=== PATIENT | male | born 1990 | race Hispanic/Latino ===

== ENCOUNTER 2017-01-01 16:13 | Emergency (ER) | payer OTHER ==
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
[2017-01-02 01:31] VITALS: BP 106/71
== END 2017-01-01 22:25 | disposition home or self-care (01) ==
LOC: ED 16:13
DX: M54.2 Cervicalgia (principal); V89.2XXA Person injured in unspecified motor-vehicle accident, traffic, initial encounter; Y93.89 Activity, other specified; Y99.9 Unspecified external cause status; Y92.410 Unspecified street and highway as the place of occurrence of the external cause
CPT/HCPCS: 72125

== ENCOUNTER 2017-09-20 20:54 | Emergency (ER) | payer OTHER ==
[2017-09-20] MEDS ORDERED: ZOFRAN ONE (21:16)
[2017-09-20] MEDS ORDERED: ZOFRAN IV ONE (21:18)
--- NOTE | 2017-09-20 21:25 | Emergency Department Report ---
ED Dizziness HPI - General Chief Complaint: Dizziness Stated Complaint: N&V,WEAKNESS Time Seen by Provider: 09/20/17 21:19 Source: patient, EMS Mode of arrival: Stretcher Limitations: No Limitations - History of Present Illness Initial Comments: Patient is a 27 years old male with no significant past medical history brought to the ER via EMS actively vomiting and complaining of dizziness and headache. Patient stated that he took 3 shots of espresso and he went for a workout. This is when he start having the nausea and vomiting and dizziness and headache. Patient denied any history of symptoms like this before. He denied any fever, neck pain or stiffness. No focal weakness, numbness or tingling sensation. MD Complaint: dizziness - Related Data Previous Rx's Medication Instructions Recorded Last Taken Type Ibuprofen [Motrin] 600 mg PO Q8H PRN #15 tablet 01/01/17 Unknown Rx methOCARBAMOL [Robaxin TAB] 500 mg PO Q6H PRN #15 tablet 01/01/17 Unknown Rx Allergies Allergy/AdvReac Type Severity Reaction Status Date / Time No Known Allergies Allergy Unverified 01/01/17 17:21 ED Review of Systems ROS: Stated complaint: N&V,WEAKNESS Other details as noted in HPI Comment: All other systems reviewed and negative Constitutional: denies: chills, fever Respiratory: denies: cough, shortness of breath, SOB with exertion Cardiovascular: denies: chest pain, palpitations, dyspnea on exertion Gastrointestinal: denies: abdominal pain, nausea, vomiting, diarrhea, constipation, hematemesis, melena Neurological: headache. denies: weakness, numbness, paresthesias, confusion, abnormal gait, vertigo ED Past Medical Hx - Past Medical History Previous Medical History?: No - Surgical History Past Surgical History?: No - Social History Smoking Status: Unknown if ever smoked - Medications Home Medications: Home Medications Medication Instructions Recorded Confirmed Last Taken Type Ibuprofen [Motrin] 600 mg PO Q8H PRN #15 tablet 01/01/17 Unknown Rx methOCARBAMOL [Robaxin TAB] 500 mg PO Q6H PRN #15 tablet 01/01/17 Unknown Rx ED Physical Exam - General Limitations: No Limitations General appearance: alert, other (patient is actively vomiting) - Head Head exam: Present: atraumatic, normocephalic, normal inspection - Eye Eye exam: Present: normal appearance, PERRL - ENT ENT exam: Present: normal exam, normal orophraynx, mucous membranes moist. Absent: mucous membranes dry, TM's normal bilaterally, normal external ear exam - Neck Neck exam: Present: normal inspection, full ROM. Absent: tenderness, meningismus - Respiratory Respiratory exam: Present: normal lung sounds bilaterally. Absent: respiratory distress, wheezes, rales, rhonchi, accessory muscle use, decreased breath sounds , prolonged expiratory - Cardiovascular Cardiovascular Exam: Present: regular rate, normal rhythm, normal heart sounds - GI/Abdominal GI/Abdominal exam: Present: soft, normal bowel sounds. Absent: distended, tenderness, guarding, rebound, rigid, organomegaly, mass, bruit, pulsatile mass , hernia - Extremities Exam Extremities exam: Present: normal inspection, full ROM, normal capillary refill - Back Exam Back exam: Present: normal inspection, full ROM. Absent: tenderness, CVA tenderness (R), CVA tenderness (L), muscle spasm, paraspinal tenderness, vertebral tenderness - Neurological Exam Neurological exam: Present: alert, oriented X3, CN II-XII intact, normal gait - Skin Skin exam: Present: warm, intact, normal color ED Course Vital Signs 09/20/17 09/20/17 09/20/17 20:57 21:01 21:15 Temperature 97.5 F L Pulse Rate 87 91 H 99 H Respiratory 16 18 20 Rate Blood Pressure 121/71 125/47 O2 Sat by Pulse 100 100 100 Oximetry 09/20/17 09/20/17 09/20/17 21:21 21:25 21:30 Temperature Pulse Rate 80 78 81 Respiratory 18 18 19 Rate Blood Pressure 125/47 125/47 128/65 O2 Sat by Pulse 100 100 100 Oximetry 09/20/17 09/20/17 09/20/17 21:35 21:41 21:42 Temperature 97.7 F Pulse Rate 79 Respiratory 17 16 Rate Blood Pressure 128/65 O2 Sat by Pulse 100 98 Oximetry 09/20/17 09/20/17 09/20/17 21:53 21:55 21:57 Temperature Pulse Rate 73 70 86 Respiratory 17 14 18 Rate Blood Pressure 128/65 128/65 128/65 O2 Sat by Pulse 100 100 100 Oximetry 09/20/17 09/20/17 09/20/17 21:59 22:00 22:15 Temperature Pulse Rate 91 H 85 80 Respiratory 18 17 14 Rate Blood Pressure 128/65 135/70 135/70 O2 Sat by Pulse 100 100 Oximetry 09/20/17 09/20/17 09/20/17 22:17 22:19 22:21 Temperature Pulse Rate 70 70 67 Respiratory 15 14 17 Rate Blood Pressure 122/71 122/71 122/71 O2 Sat by Pulse 100 100 100 Oximetry 09/20/17 09/20/17 09/20/17 22:23 22:25 22:27 Temperature Pulse Rate 73 80 73 Respiratory 19 19 18 Rate Blood Pressure 122/71 122/71 122/71 O2 Sat by Pulse 100 100 100 Oximetry 09/20/17 09/20/17 09/20/17 22:29 22:30 22:33 Temperature Pulse Rate 75 73 74 Respiratory 18 17 16 Rate Blood Pressure 122/71 121/61 121/61 O2 Sat by Pulse 100 100 100 Oximetry 09/20/17 09/20/17 09/20/17 22:35 22:37 22:39 Temperature Pulse Rate 83 80 77 Respiratory 18 19 19 Rate Blood Pressure 121/61 121/61 121/61 O2 Sat by Pulse 100 100 100 Oximetry 09/20/17 09/20/17 09/20/17 22:41 22:43 22:45 Temperature Pulse Rate 76 75 81 Respiratory 19 19 20 Rate Blood Pressure 121/61 121/61 121/61 O2 Sat by Pulse 100 100 100 Oximetry 09/20/17 09/20/17 09/20/17 22:47 22:49 22:51 Temperature Pulse Rate 80 79 81 Respiratory 13 17 19 Rate Blood Pressure 121/61 121/61 121/61 O2 Sat by Pulse 100 100 100 Oximetry 09/20/17 09/20/17 09/20/17 22:53 22:55 22:57 Temperature Pulse Rate 83 72 76 Respiratory 20 17 18 Rate Blood Pressure 121/61 121/61 121/61 O2 Sat by Pulse 100 100 100 Oximetry 09/20/17 09/20/17 09/20/17 22:59 23:00 23:03 Temperature Pulse Rate 76 78 78 Respiratory 18 17 19 Rate Blood Pressure 121/61 121/47 135/70 O2 Sat by Pulse 100 100 100 Oximetry 09/20/17 09/20/17 09/20/17 23:05 23:07 23:09 Temperature Pulse Rate 79 70 71 Respiratory 18 18 17 Rate Blood Pressure 135/70 135/70 135/70 O2 Sat by Pulse 100 100 100 Oximetry 09/20/17 09/20/17 09/20/17 23:11 23:13 23:15 Temperature Pulse Rate 78 80 81 Respiratory 18 15 18 Rate Blood Pressure 135/70 135/70 135/70 O2 Sat by Pulse 100 100 100 Oximetry 09/20/17 09/20/17 09/20/17 23:17 23:19 23:21 Temperature Pulse Rate 69 70 80 Respiratory 17 17 18 Rate Blood Pressure 135/70 135/70 135/70 O2 Sat by Pulse 100 100 100 Oximetry 09/20/17 09/20/17 09/20/17 23:23 23:25 23:27 Temperature Pulse Rate 79 79 78 Respiratory 17 18 17 Rate Blood Pressure 135/70 135/70 135/70 O2 Sat by Pulse 100 100 100 Oximetry 09/20/17 09/20/17 09/20/17 23:29 23:30 23:33 Temperature Pulse Rate 81 78 73 Respiratory 19 19 16 Rate Blood Pressure 135/70 112/50 112/50 O2 Sat by Pulse 100 100 100 Oximetry 09/20/17 09/20/17 09/20/17 23:35 23:37 23:39 Temperature Pulse Rate 77 79 79 Respiratory 18 16 16 Rate Blood Pressure 112/50 112/50 112/50 O2 Sat by Pulse 100 100 100 Oximetry 09/20/17 09/20/17 09/20/17 23:41 23:43 23:45 Temperature Pulse Rate 81 79 74 Respiratory 16 16 16 Rate Blood Pressure 112/50 112/50 112/50 O2 Sat by Pulse 100 100 100 Oximetry 09/20/17 09/20/17 09/21/17 23:51 23:55 00:00 Temperature Pulse Rate 87 71 74 Respiratory 12 15 16 Rate Blood Pressure 112/50 112/50 114/52 O2 Sat by Pulse 100 100 100 Oximetry 09/21/17 09/21/17 09/21/17 00:05 00:11 00:15 Temperature Pulse Rate 79 73 82 Respiratory 16 17 16 Rate Blood Pressure 114/52 114/52 114/52 O2 Sat by Pulse 100 100 100 Oximetry 09/21/17 09/21/17 09/21/17 00:20 00:25 00:30 Temperature Pulse Rate 85 81 81 Respiratory 18 15 16 Rate Blood Pressure 114/52 114/52 121/51 O2 Sat by Pulse 100 100 99 Oximetry 09/21/18 20/18 18 00:35 00:41 00:45 Temperature Pulse Rate 79 73 80 Respiratory 17 16 16 Rate Blood Pressure 114/52 114/52 114/52 O2 Sat by Pulse 100 100 100 Oximetry 18 09/21/18 09/21/17 00:51 00:55 01:00 Temperature Pulse Rate 90 79 79 Respiratory 18 15 16 Rate Blood Pressure 114/52 114/52 128/47 O2 Sat by Pulse 100 100 99 Oximetry 09/21/1709/21/18 09/21/17 01:05 01:11 01:15 Temperature Pulse Rate 82 78 80 Respiratory 17 16 16 Rate Blood Pressure 121/51 121/51 121/51 O2 Sat by Pulse 100 100 100 Oximetry 09/21/1709/21/18 09/21/17 01:21 01:25 01:30 Temperature Pulse Rate 94 H 78 80 Respiratory 15 14 15 Rate Blood Pressure 121/51 121/51 102/48 O2 Sat by Pulse 100 100 98 Oximetry 09/21/17 09/21/17 09/21/17 01:35 01:41 01:45 Temperature Pulse Rate 76 99 H 80 Respiratory 14 19 18 Rate Blood Pressure 102/48 102/48 102/48 O2 Sat by Pulse 99 99 100 Oximetry 09/21/1718 09/21/17 01:51 01:55 02:00 Temperature Pulse Rate 77 78 78 Respiratory 16 15 16 Rate Blood Pressure 102/48 102/48 110/45 O2 Sat by Pulse 99 99 98 Oximetry 09/21/1718 09/21/17 02:05 02:11 02:15 Temperature Pulse Rate 75 81 76 Respiratory 14 16 16 Rate Blood Pressure 110/45 110/45 110/45 O2 Sat by Pulse 99 99 100 Oximetry 09/21/18 20/18 2018 02:21 02:25 02:30 Temperature Pulse Rate 76 74 78 Respiratory 16 15 14 Rate Blood Pressure 110/45 110/45 99/41 O2 Sat by Pulse 99 99 99 Oximetry 20/18 20/18 2018 02:35 02:41 02:45 Temperature Pulse Rate 88 81 87 Respiratory 14 16 14 Rate Blood Pressure 99/41 99/41 99/41 O2 Sat by Pulse 100 99 99 Oximetry 09/21/17 09/21/17 09/21/17 02:51 02:55 03:00 Temperature Pulse Rate 80 73 73 Respiratory 16 16 15 Rate Blood Pressure 99/41 99/41 110/44 O2 Sat by Pulse 99 99 98 Oximetry ED Medical Decision Making - Lab Data Result diagrams: 09/20/17 21:30 09/20/17 21:30 - EKG Data -: EKG Interpreted by Ok EKG shows normal: sinus rhythm Rate: normal - EKG Data Interpretation: no acute changes - Radiology Data Radiology results: report reviewed Referring Physician: MATT MEJIA Patient Name: DMITRY CRAIG Date of : 1990 Sex: Male Report Date: 2017-09-20 Report Status: Finalized Findings [facility] [address] [place] [address] Cat Scan Report Signed Patient: DMITRY CRAIG MR#: [id number] : 1990 Acct:[id number] Age/Sex: 27 / M ADM Date: 09/20/17 Loc: ED Attending Dr: Ordering Physician: MATT MEJIA Date of Service: 09/20/17 Procedure(s): CT head/brain wo con Accession Number(s): [id number] cc: MATT MEJIA FINAL REPORT EXAM: CT HEAD/BRAIN WO CON HISTORY: headache and vomiting TECHNIQUE: CT head without contrast PRIORS: None. FINDINGS: No acute intra-axial or extra-axial hemorrhage is identified. There is no evidence of midline shift or mass effect. The ventricles and sulci are within normal limits. Moe-white matter differentiation is intact. No acute parenchymal abnormalities seen. Bony calvarium is grossly intact. Visualized portions of the mastoids and paranasal sinuses are unremarkable. IMPRESSION: Negative CT head Transcribed By: GILMA Dictated By: GLADIS TURNER MD Electronically Authenticated By: GLADIS TURNER MD Signed Date/Time: 09/20/172249 DD/ 49 TD/TT: 09/20/172249 - Medical Decision Making Patient observed in the ER, no vomiting observed. His creatinine kinase is trending down. I discussed with the patient is condition and the need to be very careful with excessive work out as that might affect his kidney. Patient understood his condition. I advised patient to drink more fluids and have some rest. Critical care attestation.: If time is entered above; I have spent that time in minutes in the direct care of this critically ill patient, excluding procedure time. ED Disposition Clinical Impression: Rhabdomyolysis, Dizziness, Vomiting Disposition: DC- TO HOME OR SELFCARE Is pt being admited?: No Condition: Stable Instructions: Dehydration (ED), Rhabdomyolysis (ED), Dizziness (ED) Referrals: NATAN RUSSO MD [Primary Care Provider] - 3-5 Days
[2017-09-20] MEDS ORDERED: MORPHINE IV ONE (21:28)
[2017-09-20] MEDS ORDERED: NACL 0.9% 1000 ML 1,000 ML IV ONE ×2 (21:29→23:49)
[2017-09-20] MEDS ORDERED: NACL 0.9% 1000 ML 1,000 ML ONE (21:30)
[2017-09-20 21:51] LABS: Basophils % (Auto) 0.3 % (0.0-1.8); Eosinophils % (Auto) 0.1 % (0.0-4.3); Hematocrit 40.5 % (35.5-45.6); Hemoglobin 13.9 gm/dl (11.8-15.2); Lymphocytes # (Auto) 1.3 K/mm3 (1.2-5.4); Lymphocytes % (Auto) 7.8 % (13.4-35.0); Mean Corpuscular HGB Conc 34 % (32-34); Mean Corpuscular Hemoglobin 32 pg (28-32); Mean Corpuscular Volume 94 fl (84-94); Monocytes # (Auto) 1.5 K/mm3 (0.0-0.8); Monocytes % (Auto) 9.1 % (0.0-7.3); Platelet Count 136 K/mm3 (140-440); Red Blood Count 4.32 M/mm3 (3.65-5.03); Red Cell Distribution Width 13.4 % (13.2-15.2)
[2017-09-20 22:01] LABS: Alanine Aminotransferase 58 units/L (7-56); Albumin 3.8 g/dL (3.9-5); BUN/Creatinine Ratio 15; Blood Urea Nitrogen 18 mg/dL (9-20); Calcium 8.7 mg/dL (8.4-10.2); Hemolysis Index 18; Lipase 28 units/L (13-60)
--- NOTE | 2017-09-20 22:55 | Cat Scan Report ---
FINAL REPORT EXAM: CT HEAD/BRAIN WO CON HISTORY: headache and vomiting TECHNIQUE: CT head without contrast PRIORS: None. FINDINGS: No acute intra-axial or extra-axial hemorrhage is identified. There is no evidence of midline shift or mass effect. The ventricles and sulci are within normal limits. Moe-white matter differentiation is intact. No acute parenchymal abnormalities seen. Bony calvarium is grossly intact. Visualized portions of the mastoids and paranasal sinuses are unremarkable. IMPRESSION: Negative CT head
[2017-09-21] MEDS ORDERED: NACL 0.9% 1000 ML 1,000 ML IV ONE (01:58)
[2017-09-21 03:41] LABS: Bilirubin,Urine NEG (Negative); Blood,Urine NEG (Negative); Color,Urine Yellow (Yellow); Mucus,Urine FEW /HPF; Protein,Urine <15 mg/dL mg/dL (Negative); Urobilinogen,Urine < 2.0 mg/dL (<2.0); WBC,Urine < 1.0 /HPF (0.0-6.0)
[2017-09-21 03:49] LABS: Amphetamine Screen,Urine PRESUMPTIVE NEGATIVE; Benzodiazepines Screen,Urine PRESUMPTIVE NEGATIVE; Cannabinoid Screen,Urine PRESUMPTIVE NEGATIVE; Cocaine Screen,Urine PRESUMPTIVE NEGATIVE; Methadone Screen,Urine PRESUMPTIVE NEGATIVE; Opiate Screen,Urine PRESUMPTIVE NEGATIVE
[2017-09-21 04:26] VITALS: BP 107/42
== END 2017-09-21 05:19 | disposition home or self-care (01) ==
LOC: ED 20:54
DX: M62.82 Rhabdomyolysis (principal); R42 Dizziness and giddiness; R11.10 Vomiting, unspecified
CPT/HCPCS: 36415; 70450; 80053; 80307; 81001; 82550; 83690; 85025; 93005; 93010; 96361; 96374; 96375; 99284; G0480; J2270; J2405; J7030; 80320